=== PATIENT | female | born 1995 | race Caucasian/White ===

== ENCOUNTER 2020-05-25 11:00 | Outpatient (RCR) | payer BC, SELFPAY | END 2020-05-25 23:59 | LOC: IMMUN 11:00 | PROVIDERS: Visit Provider Family Medicine | DX: Z23 Encounter for immunization (principal) | CPT/HCPCS: 0011A; 0012A; 91301 ==

== ENCOUNTER 2022-05-23 15:46 | Emergency (ER) | payer OTHER, SELFPAY ==
[2022-05-23 15:47] VITALS: BP 126/82; PULSE 80; RESP 16; TEMP 36.6; O2SAT 99; BMI 33.6
--- NOTE | 2022-05-23 16:45 | RAD_ITS ---
STUDY: XR Knee Complete 4 Views or More 05/23/2022 5:15 PM REASON FOR EXAM: Female, 26 years old. fall TECHNIQUE: XR Knee Complete 4 Views or More RIGHT COMPARISON: None FINDINGS: Normal visualized distal femur. Normal visualized proximal tibia and fibula. Normal proximal tibiofibular articulation. Normal medial femorotibial compartment. Normal lateral femorotibial compartment. Normal patellofemoral articulation. The soft tissue structures are unremarkable. RAD/Knee 4 or More Views IMPRESSION: There are no acute findings. Electronically Signed: Clarence Lopez MD at 17:16 EST ,
--- NOTE | 2022-05-23 17:16 | EDS_ITS ---
HPI History of Present Illness Chief Complaint: Lower Extremity Injury Narrative Narrative: 26-year-old female who denies significant past medical history presents with injury to her right knee that she sustained at work. She states she was working with a horse, she was up on the mounting block, when it toppled over. She felt her right knee twist and turn, and she fell to the ground. She was wearing a helmet but denies hitting her head or loss of consciousness. It took her a whil e to be able to get up. She now has pain in her right knee, mainly in the medial meniscal area, that is worse with standing, weightbearing, and walking or any type of movement of her right leg. PFSH PFSH Allergy/AdvReac Type Severity Reaction Status Date / Time No Known Allergies Allergy Verified 05/23/22 15:46 ROS ROS ED ROS Narrative Constitutional: No fever, no chills. HEENT: No sore throat. No neck pain. No loss of vision. No rhinorrhea. Cardiovascular: No chest pain. No palpitations. No pedal edema. Respiratory: No cough, no shortness of breath. Abdominal: No abdominal pain. No nausea. No vomiting. Genitourinary: No dysuria. No hematuria. Musculoskeletal: No myalgias. Right knee pain worse with movement, more in medial meniscal area. Neurologic: No headaches. No dizziness. No lightheadedness. Skin: No rash. No change in color. Psychiatric: No depression. No anxiety. EXAM Physical Exam Narrative Exam Narrative: Afebrile. Vital signs noted. HEENT: Normocephalic. Atraumatic. PERRL, EOMI. Neck soft and supple. No point tenderness or step off. Cardiovascular: Regular rate and rhythm. No murmurs, rubs, or gallops appreciated. Respiratory: No tachypnea. Lungs clear to auscultation bilaterally. Gastrointestinal: Abdomen soft, nontender, with normoactive bowel sounds. No rebound or guarding. Neurological: Awake. Alert. Nonfocal, nonlateralizing. Skin: No rash. Normal color. No pallor. Musculoskeletal: No pedal edema. Mild tenderness to palpation right medial meniscal line. Negative anterior drawer test. Able to pick leg off bed directly. Flexion and extension mechanisms intact. Palpable dorsalis pedis pulse. Const Vital Signs: 05/23/22 15:47 Temperature 97.8 F Temperature Source Temporal Pulse Rate 80 Respiratory Rate 16 Blood Pressure 126/82 H Blood Pressure Mean 96 Pulse Ox 99 Oxygen Delivery Method Room Air MDM MDM MDM Narrative Medical decision making narrative: Patient is already iced the area and taken ibuprofen prior to arrival. Hence, no analgesics were given here. X-rays were obtained of the right knee and 4 views and interpreted by myself. I see no evidence of acute fracture. She will be placed in a knee immobilizer and given crutches. She will follow-up with the [facility] as this is a work-related injury, or she will call orthopedics to see if they will take a Workmen's Comp. related case. I do feel that given her negative x-rays she still may have more of an internal derangement of her knee. I feel she be discharged safely home with follow-up. She was given a note to be off work today, the day of her injury and return with limited use of her right lower extremity, and to allow crutches and knee immobilizer. She will take [id number] analgesics. Return instructions to the emergency department were reviewed. Disposition is discharged home in stable condition. Radiography Diagnostic Testing: Clinical Impression(s) from Imaging Studies Knee X-Ray 05/23/22 16:45 IMPRESSION: There are no acute findings. Electronically Signed: Clarence Lopez MD at 17:16 EST Reading Location ID and State: [facility] - [place] / [place] , Service support , Discharge Plan Triage Chief Complaint: Lower Extremity Injury ED Provider: Obdulio Britt Dx/Rx/DC Orders Clinical Impression: Fall, Right knee sprain, Internal derangement of knee Instructions: ED Meniscal Injury Knee Poss, ED Mechanical Fall, ED Knee Sprain Stand Alone Forms: ED Work / School Excuse Primary Care Provider: Care Physician,No Primary Referrals: Addison Menendez MD [Med Staff - Active Staff] - As Needed Care Physician,No Primary [Primary Care Provider] - [facility] [Non-Staff] - As soon as possible Activity Restrictions/Additional Instructions: You may call Dr. Menendez with orthopedics to see if he will take a [place] of Workmen's Compensation case. Otherwise follow-up with the now clinic. Disposition Disposition: Home, Self Care
== END 2022-05-23 18:11 | disposition home or self-care (01) ==
PROVIDERS: Emergency Provider Emergency Medicine; Visit Provider Emergency Medicine
DX: S83.91XA Sprain of unspecified site of right knee, initial encounter (principal); M23.90 Unspecified internal derangement of unspecified knee; W19.XXXA Unspecified fall, initial encounter; Y99.0 Civilian activity done for income or pay
CPT/HCPCS: 73564; 99283

== ENCOUNTER → 2022-06-07 | Outpatient (CLI) | payer OTHER, SELFPAY ==
--- NOTE | 2022-06-07 16:01 | MRI_ITS ---
STUDY: MRI RIGHT KNEE REASON FOR EXAM: Female, 26 years old. Knee injury, knee pain. TECHNIQUE: Standardized fat and water weighted pulse sequences were obtained in all 3 orthogonal planes. COMPARISON: X-ray 05/23/2022 FINDINGS: 1 cm red-white zone flap tear of the posterior horn of the medial meniscus extending to the inferior surface. Normal hyaline cartilage of the medial femorotibial compartment. Mild contusion of the posterior medial tibial plateau. There is fluid distension of the tibial collateral bursa, consistent with an associated bursitis. Normal distal semimembranosus, gracilis and semitendinosus tendons. 2 cm red red zone vertical tear of the posterior horn of the lateral meniscus (Wrisberg rip tear). Normal hyaline cartilage of the lateral femorotibial compartment. Severe contusion of the anterior lateral femoral condyle and mild contusion of the posterior lateral tibial plateau consistent with recent pivot shift injury. Associated posterior lateral corner injury with tear of the arcuate ligament, meniscal popliteal fascicles and possibly the popliteal fibular ligament which is poorly defined. Popliteus tendon is intact. Normal proximal tibiofibular articulation. There is a partial sprain of the lateral collateral (fibular) ligament. Normal popliteus tendon. Normal biceps femoris tendon. Acute anterior cruciate ligament transsection (ACL tear). Normal posterior cruciate ligament (PCL). Shallow trochlear groove and lateral subluxation of patella and edema superolateral Hoffa''s fat pad consistent with patellofemoral maltracking. Normal hyaline cartilage of the patellofemoral compartment. Normal medial and lateral patellar retinaculum. Normal quadriceps tendon. Normal patellar tendon. Normal Hoffa''s fat pad. There is a large volume joint effusion. Moderate prepatellar soft tissue swelling. Posterior soft tissue swelling likely related to the posterior lateral corner injury. The otherwise visualized osseous structures are unremarkable. MRI/Lower Ext Joint Only (Routine) IMPRESSION: 1. Recent pivot shift injury with anterior cruciate ligament transsection (ACL tear), 1 cm red-white zone flap tear of the posterior horn the medial meniscus extending to the inferior surface, Wrisberg rip tear of the posterior horn of the lateral meniscus, posterior lateral corner injury with tears of the arcuate ligament and meniscal popliteal fascicles and possibly the popliteal fibular ligament, grade 2 medial collateral ligament tear/sprain, grade 1 lateral collateral ligament tear/sprain, and large joint effusion. Fluid in the posterior soft tissues and hole in the posterior lateral capsule predisposes to fluid leakage at arthroscopy. 2. Patellofemoral maltracking. 3. Moderate prepatellar soft tissue swelling.. Electronically Signed: Judd Hassan MD at 18:09 EST ,
== END | disposition home or self-care (01) ==
DX: M23.91 Unspecified internal derangement of right knee (principal)
CPT/HCPCS: 73721